=== PATIENT | female | born 1950 | race Caucasian/White ===

== ENCOUNTER 2018-06-27 07:44 | Day surgery (SDC) | payer MEDICARE ==
[2018-06-27 09:42] VITALS: BMI 29.4
[2018-06-27] MEDS ORDERED: Propofol 10 mg/ml Inj (20 ML) ONE ×2 (11:24→11:41)
[2018-06-27] MEDS ORDERED: Lactated Ringer's 500 ML IV ONE (11:30)
[2018-06-27 12:50] VITALS: BP 122/70; PULSE 87; RESP 20; TEMP 97.8; O2SAT 86
== END 2018-06-27 12:45 | disposition home or self-care (01) ==
LOC: H.ENDO 07:44
PROVIDERS: ATTEND Internal Medicine Gastroenterology
DX: Z12.11 Encounter for screening for malignant neoplasm of colon (principal); E78.5 Hyperlipidemia, unspecified; I10 Essential (primary) hypertension; D12.2 Benign neoplasm of ascending colon; K64.8 Other hemorrhoids
CPT/HCPCS: 45385; 88305; J2001; J2704; J7120